=== PATIENT | male | born 1945 | race Caucasian/White ===

== ENCOUNTER 2019-01-18 14:43 | Outpatient (CLI) | payer MEDICARE ==
[~2019-01-18] VITALS: Ht 180.3 cm; Wt 86.4 kg
[2019-01-18 15:35] VITALS: BP 135/75; Ht 180.3 cm; Wt 86.4 kg
== END 2019-01-18 15:54 | disposition home or self-care (01) ==
LOC: D.OPS 14:43
PROVIDERS: ATTEND Internal Medicine Hematology & Oncology
DX: D70.1 Agranulocytosis secondary to cancer chemotherapy (principal)

== ENCOUNTER 2019-01-25 11:15 | Outpatient (CLI) | payer MEDICARE ==
[~2019-01-25] VITALS: Ht 180.3 cm; Wt 88.6 kg
[2019-01-25 12:35] VITALS: BP 128/74; Ht 180.3 cm; Wt 88.6 kg
== END 2019-01-25 12:52 | disposition home or self-care (01) ==
LOC: D.OPS 11:15
PROVIDERS: ATTEND Internal Medicine Hematology & Oncology
DX: D70.1 Agranulocytosis secondary to cancer chemotherapy (principal)

== ENCOUNTER 2019-02-01 11:46 | Outpatient (CLI) | payer MEDICARE ==
[~2019-02-01] VITALS: Ht 180.3 cm; Wt 88.2 kg
[2019-02-01 12:13] VITALS: BP 115/75; Ht 180.3 cm; Wt 88.2 kg
== END 2019-02-01 13:09 | disposition home or self-care (01) ==
LOC: D.OPS 11:46
PROVIDERS: ATTEND Internal Medicine Hematology & Oncology
DX: D70.1 Agranulocytosis secondary to cancer chemotherapy (principal)

== ENCOUNTER → 2019-08-24 12:14 | Outpatient (CLI) | payer MEDICARE ==
[2019-02-01 12:13] VITALS: BMI 27.1
== END | disposition home or self-care (01) ==
LOC: D.CT 12:14
PROVIDERS: ATTEND Internal Medicine Hematology & Oncology
DX: I26.99 Other pulmonary embolism without acute cor pulmonale (principal); C34.12 Malignant neoplasm of upper lobe, left bronchus or lung